=== PATIENT | male | born 1985 | race Caucasian/White ===

== ENCOUNTER 2018-07-06 16:46 | Emergency (ER) | payer OTHER ==
--- NOTE | 2018-07-06 17:15 | EDM.PDOC ---
ED HPI GENERAL MEDICAL PROBLEM - General Chief Complaint: Laceration Stated Complaint: LEFT WRIST INJURY Time Seen by Provider: 07/06/18 17:15 Source of Information: Reports: Patient History Limitations: Reports: No Limitations - History of Present Illness INITIAL COMMENTS - FREE TEXT/NARRATIVE: HISTORY AND PHYSICAL: History of present illness: Patient is a 33-year-old male who presents to the ED today after an incident at work where a sandblaster hit his right wrist. This occurred about 2 hours prior to arrival. Patient is able to use the hand and continued to work after this is was wrapped up. He states it did not bleed much. He is not up-to-date on his tetanus. He denies any numbness or tingling to the distal extremities. Denies any other extremity involvement. He denies any health history. All review of systems was reviewed and negative. Review of systems: As per history of present illness and below otherwise all systems reviewed and negative. Past medical history: As per history of present illness and as reviewed below otherwise noncontributory. Surgical history: As per history of present illness and as reviewed below otherwise noncontributory. Social history: See social history for further information Family history: As per history of present illness and as reviewed below otherwise noncontributory. Physical exam: General: Patient is well-developed and well-nourished, alert and oriented 33- year-old male. Nontoxic appearing and in no acute distress. HEENT: Atraumatic, normocephalic, pupils equal and reactive bilaterally, negative for conjunctival pallor or scleral icterus, mucous membranes moist, TMs normal bilaterally, throat clear, neck supple, nontender, trachea midline. No drooling or trismus noted. No meningeal signs. No hot potato voice noted. Lungs: Clear to auscultation, breath sounds equal bilaterally, chest nontender. Heart: S1S2, regular rate and rhythm without overt murmur Abdomen: Soft, nondistended, nontender. Negative for masses or hepatosplenomegaly. Negative for costovertebral tenderness. Pelvis: Stable nontender. Genitourinary: Deferred. Rectal: Deferred. Skin: Please see extremity for detail. Otherwise skin is intact, warm, dry. No lesions or rashes noted. Extremities: Patient does have full range of motion/strength of all fingers and wrist on his right hand. There is a 5 cm x 4 cm abrasion to the right wrist. No tendon or structures visible. Radial pulses grossly intact. Cap refill less than 2 seconds. Strong and equal grasp bilaterally. Able flex and extend all 5 fingers without weakness or difficulty. Moves all other extremities without difficulty or deficits. Neurovascular unremarkable. Neuro: Awake, alert, oriented. Cranial nerves II through XII unremarkable. Cerebellum unremarkable. Motor and sensory unremarkable throughout. Exam nonfocal. Notes: Dr. Langford was consulted on this patient. Verbal and written consent from the patient and image was sent to Dr. Langford for review. Dr Langford will follow him up in clinic tomorrow. The area does not have the ability to be sutured as it appears to be more of an abrasion. Per Dr. Langford, will apply zerofoam dressing and have close follow up with her tomorrow. Tdap was updated. Will place patient on Bactrim DS (he has allergy to PCN's). Mize given for moderate to severe pain. Discharge instructions were reviewed with the patient and his coworkers/boss was at the bedside. Supportive care measures were reviewed and discussed. Voices understanding and is agreeable to plan of care. Denies any further questions or concerns at this time. Diagnostics: none Therapeutics: Wound care, tdap, Mize, zeroform dressing Prescription: Bactrim, Mize#30 Impression: Pressure Wound of the Left Wrist Plan: 1. Keep the area clean and dry. Continue to monitor for signs of infection. Take medication as prescribed. 2. Tylenol and/or ibuprofen as needed for pain management. You can use the Mize for moderate to severe pain. Caution with activities outside of the house as this medication may cause drowsiness. 3. Dr. Langford's nurse will call you tomorrow with an appointment time. If you have not heard by from them by 9 AM, call their office to talk with them about your follow up date/time. Return to the ED as needed and as discussed. Definitive disposition and diagnosis as appropriate pending reevaluation and review of above. Onset: Today Duration: Hour(s): Location: Reports: Upper Extremity, Left Left Wrist Pain Score (Numeric/FACES): 2 - Related Data Allergies Allergy/AdvReac Type Severity Reaction Status Date / Time Penicillins Allergy Anaphylactic Verified 07/06/18 17:07 Shock Home Meds: Home Meds Acetaminophen/HYDROcodone [Mize 325-5 MG] 1 dose PO Q4H PRN #30 tablet [Rx] Sulfamethoxazole/Trimethoprim [Bactrim Ds Tablet] 1 each PO BID 7 Days #14 tablet 07/06/18 [Rx] Past Medical History - Past Health History Medical/Surgical History: Denies Medical/Surgical History - Infectious Disease History Infectious Disease History: Reports: None Social & Family History - Family History Family Medical History: Noncontributory - Tobacco Use Smoking Status *Q: Current Every Day Smoker Years of Tobacco use: 18 Packs/Tins Daily: 0.1 - Caffeine Use Caffeine Use: Reports: Coffee - Recreational Drug Use Recreational Drug Use: No ED ROS GENERAL - Review of Systems Review Of Systems: ROS reveals no pertinent complaints other than HPI. ED EXAM, SKIN/RASH Exam: See Below (see dictation) Course - Vital Signs Last Recorded V/S: Last Vital Signs Temp 99.1 F 07/06/18 17:07 Pulse 72 07/06/18 17:07 Resp 16 07/06/18 17:07 BP 140/74 07/06/18 17:07 Pulse Ox 97 07/06/18 17:07 - Orders/Labs/Meds Orders: Active Orders 24 hr Category Date Time Status Communication Order [RC] STAT Care 07/06/18 17:46 Active Vaccines to be Administered [RC] PER UNIT ROUTINE Care 07/06/18 17:21 Active Meds: Medications Discontinued Medications Generic Name Dose Route Start Last Admin Trade Name Freq PRN Reason Stop Dose Admin Hydrocodone Bitart/Acetaminophen 1 tab 07/06/18 17:21 07/06/18 17:54 Mize 325-5 Mg PO 07/06/18 17:22 1 tab ONETIME ONE Administration Bacitracin 1 dose 07/06/18 17:21 07/06/18 17:34 Bacitracin Oint 1 Gm TOP 07/06/18 17:22 1 dose ONETIME ONE Administration Diphtheria/Tetanus/Acell Pertussis 0.5 ml 07/06/18 17:21 07/06/18 17:34 Adacel IM 07/06/18 17:22 0.5 ml .ONCE ONE Administration Lidocaine HCl 5 ml 07/06/18 17:21 07/06/18 17:35 Xylocaine-Mpf 1% INJECT 07/06/18 17:22 5 ml ONETIME ONE Administration Departure - Departure Time of Disposition: 17:44 Disposition: Home, Self-Care 01 Clinical Impression: Wound, open, wrist Qualifiers: Encounter type: initial encounter Laterality: right Qualified Code(s): S61.501A - Unspecified open wound of right wrist, initial encounter - Discharge Information Prescriptions: Acetaminophen/HYDROcodone [Mize 325-5 MG] 1 dose PO Q4H PRN #30 tablet PRN Reason: Pain Sulfamethoxazole/Trimethoprim [Bactrim Ds Tablet] 1 each PO BID 7 Days #14 tablet Instructions: Wound Care, Adult Referrals: PCP,None [Primary Care Provider] - Forms: ED Department Discharge Additional Instructions: The following information is given to patients seen in the emergency department who are being discharged to home. This information is to outline your options for follow-up care. We provide all patients seen in our emergency department with a follow-up referral. The need for follow-up, as well as the timing and circumstances, are variable depending upon the specifics of your emergency department visit. If you don't have a primary care physician on staff, we will provide you with a referral. We always advise you to contact your personal physician following an emergency department visit to inform them of the circumstance of the visit and for follow-up with them and/or the need for any referrals to a consulting specialist. The emergency department will also refer you to a specialist when appropriate. This referral assures that you have the opportunity for follow-up care with a specialist. All of these measure are taken in an effort to provide you with optimal care, which includes your follow-up. Under all circumstances we always encourage you to contact your private physician who remains a resource for coordinating your care. When calling for follow-up care, please make the office aware that this follow-up is from your recent emergency room visit. If for any reason you are refused follow-up, please contact the [facility] Emergency Department at and asked to speak to the emergency department charge nurse. [facility] [address] [place] [id number] [address] [place] [address] [facility] Specialty Care - Plastic Surgery Professional Building [address], [address] [place] [address] 1. Keep the area clean and dry. Continue to monitor for signs of infection. Take medication as prescribed. 2. Tylenol and/or ibuprofen as needed for pain management. You can use the Mize for moderate to severe pain. Caution with activities outside of the house as this medication may cause drowsiness. 3. Dr. Langford's nurse will call you tomorrow with an appointment time. If you have not heard by from them by 9 AM, call their office 4. Return to the ED as needed and as discussed. - My Orders Last 24 Hours: My Active Orders 07/06/18 17:21 Vaccines to be Administered [RC] PER UNIT ROUTINE 07/06/18 17:46 Communication Order [RC] STAT - Assessment/Plan Last 24 Hours: My Active Orders 07/06/18 17:21 Vaccines to be Administered [RC] PER UNIT ROUTINE 07/06/18 17:46 Communication Order [RC] STAT
[2018-07-06] MEDS ORDERED: Diphtheria,Pertussis(Acell),Tetanus Vaccine 0.5 ML Syringe IM ONE (17:21)
[2018-07-06] MEDS ORDERED: Bacitracin Oint 1 GM U/D Packet TOP ONE (17:21)
[2018-07-06] MEDS ORDERED: Acetaminophen/HYDROcodone 325-5 MG Tab PO ONE (17:21)
== END 2018-07-06 18:25 | disposition home or self-care (01) ==
LOC: MW.ED 16:46
DX: S61.501A Unspecified open wound of right wrist, initial encounter (principal); F17.210 Nicotine dependence, cigarettes, uncomplicated; Z23 Encounter for immunization; Z88.0 Allergy status to penicillin; W22.8XXA Striking against or struck by other objects, initial encounter; Y99.0 Civilian activity done for income or pay
CPT/HCPCS: 90471; 90715; 99282; A9270; 99283; J2001

== ENCOUNTER 2018-10-30 19:03 | Emergency (ER) | payer BC, OTHER ==
[2018-10-30] MEDS ORDERED: Sodium Chloride 0.9% 2.5 ML Syringe FLUSH PRN (19:26)
[2018-10-30] MEDS ORDERED: Sodium Chloride 0.9% 10 ML Syringe FLUSH PRN (19:26)
[2018-10-30] MEDS ORDERED: Sodium Chloride 0.9% 1,000 ML IV ONE (19:27)
[2018-10-30] MEDS ORDERED: Ketorolac 30 MG/ML SDV IVPUSH ONE (19:27)
--- NOTE | 2018-10-30 19:32 | EDM.PDOC ---
ED HPI GENERAL MEDICAL PROBLEM - General Chief Complaint: Abdominal Pain Stated Complaint: PAIN IN LOWER ABDOMEN AND GROIN SINCE FRIDAY Time Seen by Provider: 10/30/18 19:16 - History of Present Illness INITIAL COMMENTS - FREE TEXT/NARRATIVE: HISTORY AND PHYSICAL: History of present illness: The patient is a 33-year-old male with no significant GI or history and presents with onset of pain in the left lower quadrant and a lump he noticed in his groin area all starting on Friday. He said he did some lifting recently and he wasn't sure if he caused hernia. He has had no fevers chills flank pain nausea vomiting or diarrhea. Is no hematuria dysuria or frequency and says that after the pain started he had some discomfort in his testicle but it was not severe and it was only dull and achy and that only occurred this morning. He denies any swelling to the testicle. He says the pain does not originate in his testicle and it was originally in the left lower quadrant and near the area where he found this small lump in his groin. He has no midline back pain and this discomfort does not radiate to his legs. He denies any trauma and did not take anything but aspirin for the discomfort. Review of systems: As per history of present illness and below otherwise all systems reviewed and negative. Past medical history: As per history of present illness and as reviewed below otherwise noncontributory. Surgical history: As per history of present illness and as reviewed below otherwise noncontributory. Social history: No reported history of drug or alcohol abuse. Family history: As per history of present illness and as reviewed below otherwise noncontributory. Physical exam: General: Well-developed well-nourished man who is nontoxic and vital signs are noted by me. He is laughing and interactive both in triage and in the room easily without any distress. HEENT: Atraumatic, normocephalic, negative for conjunctival pallor or scleral icterus, mucous membranes moist, throat clear, neck supple, nontender, trachea midline. Lungs: Clear to auscultation, breath sounds equal bilaterally, chest nontender. Heart: S1S2, regular rate and rhythm no overt murmurs Abdomen: Soft, nondistended, with slightly hypoactive bowel sounds and no tympany on percussion. There is some mild tenderness on deep palpation in the left lower quadrant which the patient says reproduces his pain. Negative for masses or hepatosplenomegaly. Negative for costovertebral tenderness. Pelvis: Stable nontender. Genitourinary: Testicles are descended bilaterally and there is a normal cremasteric reflex. The left testicle lies lower than the right and there is no evidence of any skin lesions or abnormalities. He is uncircumcised. On the left side where the patient says he has a lump there is no evidence of a hernial defect both on supine and upright exam but there is a palpable small lymph node that is mobile and rubbery in texture. Other lymph nodes in the inguinal area again that are small rubbery and mobile. Rectal: Deferred. Extremities: Atraumatic, full range of motion and no edema Neurovascular unremarkable. Neuro: Awake, alert, oriented. Cranial nerves II through XII unremarkable. Cerebellum unremarkable. Motor and sensory unremarkable throughout. Exam nonfocal. Diagnostics: CBC CMP UA with reflex CT scan of the abdomen and pelvis ultrasound of the scrotum and contents Therapeutics: IV fluids Toradol The incidental findings on the CAT scan of a small left intrarenal stone and a subacute T12 compression discussed with the patient. These are not relevant to today's complaints and the remainder of the CT scan was within normal limits Impression: Left lower abdominal pain, left testicular pain; inguinal adenopathy stable Definitive disposition and diagnosis as appropriate pending reevaluation and review of above. - Related Data Allergies Allergy/AdvReac Type Severity Reaction Status Date / Time Penicillins Allergy Anaphylactic Verified 10/30/18 19:20 Shock Past Medical History - Past Health History Medical/Surgical History: Denies Medical/Surgical History - Infectious Disease History Infectious Disease History: Reports: None Social & Family History - Family History Family Medical History: Noncontributory - Caffeine Use Caffeine Use: Reports: Coffee ED ROS GENERAL - Review of Systems Review Of Systems: ROS reveals no pertinent complaints other than HPI. ED EXAM, GENERAL - Physical Exam Exam: See Below (see Dictation) Course - Vital Signs Last Recorded V/S: Last Vital Signs Temp 36.2 C 10/30/18 20:10 Pulse 63 10/30/18 20:10 Resp 16 10/30/18 20:00 BP 110/56 L 10/30/18 20:10 Pulse Ox 97 10/30/18 20:10 - Orders/Labs/Meds Orders: Active Orders 24 hr Category Date Time Status Scrotal Duplex Ltd [US] Stat Exams 10/30/18 20:31 Taken Sodium Chloride 0.9% [Saline Flush] Med 10/30/18 19:26 Active 10 ml FLUSH ASDIRECTED PRN Sodium Chloride 0.9% [Saline Flush] Med 10/30/18 19:26 Active 2.5 ml FLUSH ASDIRECTED PRN Saline Lock Insert [OM.PC] Stat Oth 10/30/18 19:26 Ordered Medication Orders Sodium Chloride (Saline Flush) 10 ml FLUSH ASDIRECTED PRN PRN Reason: Keep Vein Open Last Admin: 10/30/18 19:42 Dose: 10 ml Sodium Chloride (Saline Flush) 2.5 ml FLUSH ASDIRECTED PRN PRN Reason: Keep Vein Open Last Admin: 10/30/18 19:42 Dose: 2.5 ml Labs: Laboratory Tests 10/30/18 10/30/18 10/30/18 Range/Units 19:27 19:37 19:37 WBC 10.09 (4.0-11.0) K/uL RBC 4.78 (4.50-5.90) M/uL Hgb 14.5 (13.0-17.0) g/dL Hct 42.4 (38.0-50.0) % MCV 88.7 (80.0-98.0) fL MCH 30.3 (27.0-32.0) pg MCHC 34.2 (31.0-37.0) g/dL RDW Std Deviation 41.0 (28.0-62.0) fl RDW Coeff of Shari 13 (11.0-15.0) % Plt Count 309 (150-400) K/uL MPV 9.30 (7.40-12.00) fL Neut % (Auto) 50.0 (48.0-80.0) % Lymph % (Auto) 40.9 H (16.0-40.0) % [place] % (Auto) 6.4 (0.0-15.0) % Eos % (Auto) 2.4 (0.0-7.0) % Baso % (Auto) 0.3 (0.0-1.5) % Neut # (Auto) 5.0 (1.4-5.7) K/uL Lymph # (Auto) 4.1 H (0.6-2.4) K/uL [place] # (Auto) 0.7 (0.0-0.8) K/uL Eos # (Auto) 0.2 (0.0-0.7) K/uL Baso # (Auto) 0.0 (0.0-0.1) K/uL Nucleated RBC % 0.0 /100WBC Nucleated RBCs # 0 K/uL Sodium 140 (136-148) mmol/L Potassium 3.6 (3.5-5.1) mmol/L Chloride 104 (98-107) mmol/L Carbon Dioxide 26.2 (21.0-32.0) mmol/L BUN 11 (7.0-18.0) mg/dL Creatinine 1.0 (0.8-1.3) mg/dL Est Cr Clr Drug Dosing TNP Estimated GFR (MDRD) > 60.0 ml/min Glucose 108 H (74-106) mg/dL Calcium 9.1 (8.5-10.1) mg/dL Total Bilirubin 0.4 (0.2-1.0) mg/dL AST 16 (15-37) IU/L ALT 21 (14-63) IU/L Alkaline Phosphatase 81 (46-116) U/L Total Protein 7.8 (6.4-8.2) g/dL Albumin 4.5 (3.4-5.0) g/dL Globulin 3.3 (2.6-4.0) g/dL Albumin/Globulin Ratio 1.4 (0.9-1.6) Urine Color YELLOW Urine Appearance SLT CLOUDY Urine pH 6.0 (5.0-8.0) Ur Specific [place] >= 1.030 (1.001-1.035) Urine Protein NEGATIVE (NEGATIVE) mg/dL Urine Glucose (UA) NEGATIVE (NEGATIVE) mg/dL Urine Ketones TRACE H (NEGATIVE) mg/dL Urine Occult Blood NEGATIVE (NEGATIVE) Urine Nitrite NEGATIVE (NEGATIVE) Urine Bilirubin NEGATIVE (NEGATIVE) Urine Urobilinogen 0.2 (<2.0) EU/dL Ur Leukocyte Esterase NEGATIVE (NEGATIVE) Meds: Medications Generic Name Dose Route Start Last Admin Trade Name Freq PRN Reason Stop Dose Admin Sodium Chloride 10 ml 10/30/18 19:26 10/30/18 19:42 Saline Flush FLUSH 10 ml ASDIRECTED PRN Administration Keep Vein Open Sodium Chloride 2.5 ml 10/30/18 19:26 10/30/18 19:42 Saline Flush FLUSH 2.5 ml ASDIRECTED PRN Administration Keep Vein Open Discontinued Medications Generic Name Dose Route Start Last Admin Trade Name Carlq PRN Reason Stop Dose Admin Sodium Chloride 1,000 mls @ 999 mls/hr 10/30/18 19:27 10/30/18 19:39 Normal Saline IV 10/30/18 20:27 999 mls/hr STAT ONE Administration Ketorolac Tromethamine 30 mg 10/30/18 19:27 10/30/18 19:40 Toradol IVPUSH 10/30/18 19:28 30 mg ONETIME ONE Administration Departure - Departure Time of Disposition: 21:12 Disposition: Home, Self-Care 01 Condition: Good Clinical Impression: Pain in left testicle Abdominal pain Qualifiers: Abdominal location: left lower quadrant Qualified Code(s): R10.32 - Left lower quadrant pain - Discharge Information Referrals: PCP,None [Primary Care Provider] - Forms: ED Department Discharge Additional Instructions: The following information is given to patients seen in the emergency department who are being discharged to home. This information is to outline your options for follow-up care. We provide all patients seen in our emergency department with a follow-up referral. The need for follow-up, as well as the timing and circumstances, are variable depending upon the specifics of your emergency department visit. If you don't have a primary care physician on staff, we will provide you with a referral. We always advise you to contact your personal physician following an emergency department visit to inform them of the circumstance of the visit and for follow-up with them and/or the need for any referrals to a consulting specialist. The emergency department will also refer you to a specialist when appropriate. This referral assures that you have the opportunity for followup care with a specialist. All of these measure are taken in an effort to provide you with optimal care, which includes your followup. Under all circumstances we always encourage you to contact your private physician who remains a resource for coordinating your care. When calling for followup care, please make the office aware that this follow-up is from your recent emergency room visit. If for any reason you are refused follow-up, please contact the [facility] emergency department at and ask to speak to the emergency department charge nurse. [facility] Primary care- Internal Medicine and Family [address] [address] Push hydration and try to eat a healthy diet. Use [id number] Tylenol or ibuprofen for pain management please call and schedule a follow-up appointment in our clinic for further care and evaluation. Return to ER as needed and as discussed - My Orders Last 24 Hours: My Active Orders 10/30/18 19:26 Sodium Chloride 0.9% [Saline Flush] 10 ml FLUSH ASDIRECTED PRN Sodium Chloride 0.9% [Saline Flush] 2.5 ml FLUSH ASDIRECTED PRN Saline Lock Insert [OM.PC] Stat 10/30/18 20:31 Scrotal Duplex Ltd [US] Stat - Assessment/Plan Last 24 Hours: My Active Orders 10/30/18 19:26 Sodium Chloride 0.9% [Saline Flush] 10 ml FLUSH ASDIRECTED PRN Sodium Chloride 0.9% [Saline Flush] 2.5 ml FLUSH ASDIRECTED PRN Saline Lock Insert [OM.PC] Stat 10/30/18 20:31 Scrotal Duplex Ltd [US] Stat
[2018-10-30 20:11] LABS: CHLORIDE,CL 104 mmol/L (98-107); SODIUM,NA 140 mmol/L (136-148)
--- NOTE | 2018-10-30 20:16 | CT ---
INDICATION: Left lower quadrant pain. Possible calculus. COMPARISON: None available TECHNIQUE: CT examination of the abdomen and pelvis was performed without contrast enhancement using 3 mm thick axial sections from the lung bases through the pubic symphysis. Oral contrast was not administered. Please note that all CT scans at this facility use dose modulation, iterative reconstruction, and/or weight-based dosing when appropriate to reduce radiation dose to as low as reasonably achievable. FINDINGS: In the abdomen, the unenhanced liver, spleen, pancreas, and adrenals are normal in appearance. There is a 1 millimeter nonobstructive calculus in the interpolar left kidney. This is only clearly seen on the coronal images. The unenhanced kidneys are otherwise normal in appearance. The gallbladder is normal in appearance. The abdominal aorta is normal in caliber with no sign of dilatation. There is no sign of retroperitoneal mass or adenopathy. The stomach, loops of small bowel, and colon in the abdomen are normal in appearance. In the pelvis, the appendix is normal in appearance with no sign of inflammatory process. The loops of small bowel and colon in the pelvis are normal in appearance. The prostate is normal in appearance. The urinary bladder is normal in appearance. There is no sign of pelvic or inguinal mass or adenopathy. The lung bases are clear. Incidental note is made of small bone islands in the left anterior femoral head and the left superior acetabulum. There is mild anterior wedging of the T12 vertebral body with depression of the superior endplate, consistent with an old endplate fracture and mild compression fracture. IMPRESSION: CT of the abdomen shows a 1 millimeter nonobstructive calculus in the interpolar left kidney. No sign of any left renal or ureteral obstruction or ureteral calculi. No sign of any calculi in the right kidney. Normal CT of the pelvis without contrast. Please note that all CT scans at this facility use dose modulation, iterative reconstruction, and/or weight-based dosing when appropriate to reduce radiation dose to as low as reasonably achievable. Dictated by Radames Puentes MD @ Oct 30 2018 8:11PM Signed by Dr. Radames Puentes @ Oct 30 2018 8:16PM
--- NOTE | 2018-10-30 21:10 | US ---
INDICATION: Left testicular pain. COMPARISON: None available. FINDINGS: Ultrasound examination of the testes was performed with a high-resolution linear transducer. A few nonspecific tiny punctate calcifications are seen in the left testis, unlikely to be of clinical concern. The testes are otherwise normal in appearance, with smooth margins and uniform internal echogenicity. There is normal and symmetric pulse and color Doppler flow. The right testis measures 5.1 x 2.7 x 3.9 cm and the left measures 3.8 x 2.3 x 4.0 cm There is a right epididymal head cyst measuring up to 0.8 centimeters in diameter, of no clinical concern. The left epididymal head is normal in appearance. There is no sign of hydrocele. No extra-testicular masses are seen. IMPRESSION: Nothing seen to correlate with the patient`s left testicular pain. Normal appearance of the left testis except for tiny punctate calcifications of no clinical concern. Normal appearance of right testis. Symmetric and normal bilateral color and pulsed Doppler flow in the testes. Incidental note made of a small cyst in the right epididymal head. Dictated by Radames Puentes MD @ Oct 30 2018 9:06PM Signed by Dr. Radames Puentes @ Oct 30 2018 9:08PM
--- NOTE | 2018-11-02 10:21 | US ---
EXAM DATE: 10/30/18 PATIENT'S AGE: 33 Patient: JIM DANIELS Facility: [facility] Site . Site : 1985 Study: US-Testicle [id number]/14/2019 9:05:24 PM Ordering Physician: Ellyn Garcia Final Report: INDICATION: Left testicular pain. COMPARISON: None available. FINDINGS: Ultrasound examination of the testes was performed with a high-resolution linear transducer. A few nonspecific tiny punctate calcifications are seen in the left testis, unlikely to be of clinical concern. The testes are otherwise normal in appearance, with smooth margins and uniform internal echogenicity. There is normal and symmetric pulse and color Doppler flow. The right testis measures 5.1 x 2.7 x 3.9 cm and the left measures 3.8 x 2.3 x 4.0 cm There is a right epididymal head cyst measuring up to 0.8 centimeters in diameter, of no clinical concern. The left epididymal head is normal in appearance. There is no sign of hydrocele. No extra-testicular masses are seen. IMPRESSION: Nothing seen to correlate with the patient`s left testicular pain. Normal appearance of the left testis except for tiny punctate calcifications of no clinical concern. Normal appearance of right testis. Symmetric and normal bilateral color and pulsed Doppler flow in the testes. Incidental note made of a small cyst in the right epididymal head. Dictated by Radames Puentes MD @ Oct 30 2018 9:06PM Signed by: Radames Puentes MD @10/30/2018 9:08:57 PM (Electronic Signature) Report Signed by Proxy. JOHN
== END 2018-10-30 21:30 | disposition home or self-care (01) ==
LOC: MW.ED 19:03
DX: N50.812 Left testicular pain (principal); R10.32 Left lower quadrant pain; R59.0 Localized enlarged lymph nodes; Z88.0 Allergy status to penicillin
CPT/HCPCS: 36415; 74176; 76870; 80053; 81003; 85025; 93976; 96361; 96374; 99284; J1885; J7040

== ENCOUNTER 2019-04-05 17:39 | Emergency (ER) | payer BC ==
--- NOTE | 2019-04-05 18:08 | EDM.PDOC ---
ED HPI GENERAL MEDICAL PROBLEM - General Chief Complaint: Upper Extremity Injury/Pain Stated Complaint: LT ARM PAIN Time Seen by Provider: 04/05/19 18:00 - History of Present Illness INITIAL COMMENTS - FREE TEXT/NARRATIVE: HISTORY AND PHYSICAL: History of present illness: Patient 34-year-old male with no significant past medical history presents with a concern of left elbow pain he denies any trauma or other concern. Review of systems: As per history of present illness and below otherwise all systems reviewed and negative. Past medical history: As per history of present illness and as reviewed below otherwise noncontributory. Surgical history: As per history of present illness and as reviewed below otherwise noncontributory. Social history: No reported history of drug or alcohol abuse. Family history: As per history of present illness and as reviewed below otherwise noncontributory. Physical exam: HEENT: Atraumatic, normocephalic, pupils reactive, negative for conjunctival pallor or scleral icterus, mucous membranes moist, throat clear, neck supple, nontender, trachea midline. Lungs: Clear to auscultation, breath sounds equal bilaterally, chest nontender. Heart: S1S2, regular, negative for clicks, rubs, or JVD. Abdomen: Soft, nondistended, nontender. Negative for masses or hepatosplenomegaly. Negative for costovertebral tenderness. Pelvis: Stable nontender. Genitourinary: Deferred. Rectal: Deferred. Extremities: Left elbow is full range of motion is no erythema no point tenderness CMS neurovascular is unremarkable. Neuro: Awake, alert, oriented. Cranial nerves II through XII unremarkable. Cerebellum unremarkable. Motor and sensory unremarkable throughout. Exam nonfocal. Diagnostics: X-ray left elbow Therapeutics: Sling Impression: #1 left elbow pain etiology to be determined Definitive disposition and diagnosis as appropriate pending reevaluation and review of above. LEFT ELBOW Pain Score (Numeric/FACES): 8 - Related Data Allergies Allergy/AdvReac Type Severity Reaction Status Date / Time Penicillins Allergy Anaphylactic Verified 10/30/18 19:20 Shock Home Meds: Home Meds . [No Known Home Meds] 10/30/18 [History] Past Medical History - Past Health History Medical/Surgical History: Denies Medical/Surgical History - Infectious Disease History Infectious Disease History: Reports: None Social & Family History - Family History Family Medical History: Noncontributory - Caffeine Use Caffeine Use: Reports: Coffee Review of Systems - Review of Systems Review Of Systems: Comprehensive ROS is negative, except as noted in HPI. ED EXAM, GENERAL - Physical Exam Exam: See Below (See dictation) Course - Orders/Labs/Meds Orders: Active Orders 24 hr Category Date Time Status Elbow 2V Lt [CR] Stat Exams 04/05/19 18:05 Ordered Departure - Departure Time of Disposition: 18:06 Disposition: Home, Self-Care 01 Condition: Good Clinical Impression: Elbow pain - Discharge Information Referrals: PCP,None [Primary Care Provider] - Additional Instructions: The following information is given to patients seen in the emergency department who are being discharged to home. This information is to outline your options for follow-up care. We provide all patients seen in our emergency department with a follow-up referral. The need for follow-up, as well as the timing and circumstances, are variable depending upon the specifics of your emergency department visit. If you don't have a primary care physician on staff, we will provide you with a referral. We always advise you to contact your personal physician following an emergency department visit to inform them of the circumstance of the visit and for follow-up with them and/or the need for any referrals to a consulting specialist. The emergency department will also refer you to a specialist when appropriate. This referral assures that you have the opportunity for followup care with a specialist. All of these measure are taken in an effort to provide you with optimal care, which includes your followup. Under all circumstances we always encourage you to contact your private physician who remains a resource for coordinating your care. When calling for followup care, please make the office aware that this follow-up is from your recent emergency room visit. If for any reason you are refused follow-up, please contact the [facility] emergency department at and asked to speak to the emergency department charge nurse. [facility] Professional Building [address] [place] [address], [address] [place] [address] Sling as directed Motrin/Tylenol as directed follow-up primary medical doctor and/or orthopedic clinic as needed as discussed - My Orders Last 24 Hours: My Active Orders 04/05/19 18:05 Elbow 2V Lt [CR] Stat - Assessment/Plan Last 24 Hours: My Active Orders 04/05/19 18:05 Elbow 2V Lt [CR] Stat
--- NOTE | 2019-04-05 18:20 | CR ---
Indication: Pain for couple of months. No injury. Technique: Two views of the left elbow were obtained. Comparison: None Findings: No fracture or subluxation is identified. The joint spaces are well maintained. A significant joint effusion is not appreciated. Impression: No acute fracture. Dictated by Connie Rodriguez MD @ Apr 05 2019 6:18PM Signed by Dr. Connie Rodriguez @ Apr 05 2019 6:18PM
== END 2019-04-05 18:50 | disposition home or self-care (01) ==
LOC: MW.ED 17:39
DX: M25.522 Pain in left elbow (principal); Z88.0 Allergy status to penicillin
CPT/HCPCS: 73070-26-LT; 73070-LT; 99282; 99283-25

== ENCOUNTER 2020-02-10 21:02 | Emergency (ER) | payer BC, OTHER ==
[2020-02-10] MEDS ORDERED: Sodium Chloride 0.9% 10 ML Syringe FLUSH PRN (21:03)
[2020-02-10] MEDS ORDERED: Sodium Chloride 0.9% 2.5 ML Syringe FLUSH PRN (21:03)
[2020-02-10] MEDS ORDERED: Lactated Ringers 1,000 ML IV ONE ×2 (21:04→21:05)
[2020-02-10] MEDS ORDERED: Ondansetron 4 MG/2 ML SDV IVPUSH ONE (21:04)
--- NOTE | 2020-02-10 21:09 | EDM.PDOC ---
ED HPI GENERAL MEDICAL PROBLEM - General Stated Complaint: CHEST PAIN Time Seen by Provider: 02/10/20 21:03 - History of Present Illness INITIAL COMMENTS - FREE TEXT/NARRATIVE: 35-year-old male presenting with palpitations and lightheadedness and red emesi s. 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 He states that he has a burning discomfort in his abdomen. He denies recent melena or bright red blood per rectum he denies heavy regular alcohol use he denies prior history of similar symptoms. He denies prior cardiac history. He denies substernal chest pain. He denies syncope. Symptoms constant without exacerbating or alleviating factors radiation or other associated symptoms. - Related Data Allergies Allergy/AdvReac Type Severity Reaction Status Date / Time Penicillins Allergy Anaphylactic Verified 10/30/18 19:20 Shock Home Meds: Home Meds . [No Known Home Meds] 10/30/18 [History] Past Medical History - Past Health History Medical/Surgical History: Denies Medical/Surgical History - Infectious Disease History Infectious Disease History: Reports: None Social & Family History - Family History Family Medical History: Noncontributory - Caffeine Use Caffeine Use: Reports: Coffee ED ROS GENERAL - Review of Systems Review Of Systems: See Below Free Text/Narrative/Comment: General: No fever. Eyes: No vision problems. ENT: No sore throat. Neck: No neck stiffness. Respiratory: No shortness of breath. Cardiac: Per HPI Gastrointestinal: Per HPI Musculoskeletal: No myalgias/arthralgias. Neurologic: No headache. ED EXAM, GENERAL - Physical Exam Exam: See Below Free Text/Narrative:: General Appearance: No acute distress, appears comfortable Skin: No rash HEENT: Normocephalic/atraumatic, sclera anicteric, mucous membranes dry Neck: Normal range of motion Chest and Lungs: Bilateral breath sounds, clear to auscultation Cardiovascular: Tachycardic rate and regular rhythm, no murmur, intact distal perfusion Abdomen: Soft, non-tender, nondistended Back: Normal Musculoskeletal: No edema or tenderness Neurologic: Awake, alert, no obvious deficits, moving all extremities Psychiatric: Appropriate, cooperative EKG INTERPRETATION EKG Date: 02/10/20 Time: 20:56 EKG Interpretation Comments: Sinus tachycardia with a rate of 147 normal axis no acute ischemia per my interpretation normal intervals with QTC of 445 Course - Vital Signs Last Recorded V/S: Last Vital Signs Temp 97.3 F 02/10/20 21:03 Pulse 78 02/11/20 02:27 Resp 18 02/11/20 02:27 BP 116/59 L 02/11/20 02:27 Pulse Ox 97 02/11/20 02:27 - Orders/Labs/Meds Orders: Active Orders 24 hr Category Date Time Status CORONAVIRUS COVID-19 PCR PHL Stat Lab 02/10/20 21:14 Ordered CULTURE BLOOD [BC] Stat Lab 02/10/20 21:29 Received CULTURE BLOOD [BC] Stat Lab 02/10/20 21:36 Received Ciprofloxacin in D5W [Cipro in D5W 400 MG/200 ML] 400 Med 02/10/20 21:15 Active mg Premix Bag 1 bag IV Q12H Lactated Ringers [Ringers, Lactated] 1,000 ml Med 02/10/20 22:30 Active IV ASDIRECTED Sodium Chloride 0.9% [Saline Flush] Med 02/10/20 21:03 Active 10 ml FLUSH ASDIRECTED PRN Sodium Chloride 0.9% [Saline Flush] Med 02/10/20 21:03 Active 2.5 ml FLUSH ASDIRECTED PRN Blood Culture x2 Reflex Set [OM.PC] Stat Oth 02/10/20 21:15 Ordered Saline Lock Insert [OM.PC] Stat Oth 02/10/20 21:03 Ordered Medication Orders Ciprofloxacin/Dextrose 400 mg/ (Premix) 200 mls @ 200 mls/hr IV Q12H [facility] Last Admin: 02/10/20 21:38 Dose: 200 mls/hr Documented by: ALEXTBRI Lactated Ringer's (Ringers, Lactated) 1,000 mls @ 125 mls/hr IV ASDIRECTED CONNER Last Admin: 02/10/20 22:40 Dose: 500 mls/hr Documented by: SLATBRI Sodium Chloride (Saline Flush) 10 ml FLUSH ASDIRECTED PRN PRN Reason: Keep Vein Open Last Admin: 02/10/20 21:40 Dose: 10 ml Documented by: SLATBRI Sodium Chloride (Saline Flush) 2.5 ml FLUSH ASDIRECTED PRN PRN Reason: Keep Vein Open Last Admin: 02/10/20 21:40 Dose: 2.5 ml Documented by: DOC Labs: Laboratory Tests 02/10/20 02/10/20 02/10/20 Range/Units 21:07 21:07 21:07 WBC 15.44 H (4.0-11.0) K/uL RBC 4.94 (4.50-5.90) M/uL Hgb 15.0 (13.0-17.0) g/dL Hct 44.8 (38.0-50.0) % MCV 90.7 (80.0-98.0) fL MCH 30.4 (27.0-32.0) pg MCHC 33.5 (31.0-37.0) g/dL RDW Std Deviation 44.4 (28.0-62.0) fl RDW Coeff of Shari 13 (11.0-15.0) % Plt Count 365 (150-400) K/uL MPV 9.30 (7.40-12.00) fL Neut % (Auto) 83.1 H (48.0-80.0) % Lymph % (Auto) 11.6 L (16.0-40.0) % Conway % (Auto) 5.1 (0.0-15.0) % Eos % (Auto) 0.1 (0.0-7.0) % Baso % (Auto) 0.1 (0.0-1.5) % Neut # (Auto) 12.8 H (1.4-5.7) K/uL Lymph # (Auto) 1.8 (0.6-2.4) K/uL Conway # (Auto) 0.8 (0.0-0.8) K/uL Eos # (Auto) 0.0 (0.0-0.7) K/uL Baso # (Auto) 0.0 (0.0-0.1) K/uL Nucleated RBC % 0.0 /100WBC Nucleated RBCs # 0 K/uL INR 1.09 APTT 24.7 (18.6-31.3) SEC Lactate 4.2 H* (0.20-2.00) mmol/L Sodium (136-148) mmol/L Potassium (3.5-5.1) mmol/L Chloride (98-107) mmol/L Carbon Dioxide (21.0-32.0) mmol/L BUN (7.0-18.0) mg/dL Creatinine (0.8-1.3) mg/dL Est Cr Clr Drug Dosing Estimated GFR (MDRD) ml/min Glucose (74-106) mg/dL Calcium (8.5-10.1) mg/dL Magnesium (1.8-2.4) mg/dL Total Bilirubin (0.2-1.0) mg/dL AST (15-37) IU/L ALT (14-63) IU/L Alkaline Phosphatase (46-116) U/L Troponin I (0.000-0.056) ng/mL Total Protein (6.4-8.2) g/dL Albumin (3.4-5.0) g/dL Globulin (2.6-4.0) g/dL Albumin/Globulin Ratio (0.9-1.6) Lipase (73-393) U/L Urine Color Urine Appearance Urine pH (5.0-8.0) Ur Specific [place] (1.001-1.035) Urine Protein (NEGATIVE) mg/dL Urine Glucose (UA) (NEGATIVE) mg/dL Urine Ketones (NEGATIVE) mg/dL Urine Occult Blood (NEGATIVE) Urine Nitrite (NEGATIVE) Urine Bilirubin (NEGATIVE) Urine Urobilinogen (<2.0) EU/dL Ur Leukocyte Esterase (NEGATIVE) Urine RBC (0-2/HPF) Urine WBC (0-5/HPF) Ur Epithelial Cells (NONE-FEW) Urine Bacteria (NEGATIVE) Urine Mucus (NONE-MOD) Ethyl Alcohol mg/dL SARS-CoV-2 RNA (VARSHA) (NEGATIVE) 02/10/20 02/10/20 02/10/20 Range/Units 21:07 22:27 22:35 WBC (4.0-11.0) K/uL RBC (4.50-5.90) M/uL Hgb (13.0-17.0) g/dL Hct (38.0-50.0) % MCV (80.0-98.0) fL MCH (27.0-32.0) pg MCHC (31.0-37.0) g/dL RDW Std Deviation (28.0-62.0) fl RDW Coeff of Shari (11.0-15.0) % Plt Count (150-400) K/uL MPV (7.40-12.00) fL Neut % (Auto) (48.0-80.0) % Lymph % (Auto) (16.0-40.0) % Conway % (Auto) (0.0-15.0) % Eos % (Auto) (0.0-7.0) % Baso % (Auto) (0.0-1.5) % Neut # (Auto) (1.4-5.7) K/uL Lymph # (Auto) (0.6-2.4) K/uL Conway # (Auto) (0.0-0.8) K/uL Eos # (Auto) (0.0-0.7) K/uL Baso # (Auto) (0.0-0.1) K/uL Nucleated RBC % /100WBC Nucleated RBCs # K/uL INR APTT (18.6-31.3) SEC Lactate 2.5 H* (0.20-2.00) mmol/L Sodium 139 (136-148) mmol/L Potassium 3.1 L (3.5-5.1) mmol/L Chloride 101 (98-107) mmol/L Carbon Dioxide 24.1 (21.0-32.0) mmol/L BUN 9 (7.0-18.0) mg/dL Creatinine 1.3 (0.8-1.3) mg/dL Est Cr Clr Drug Dosing TNP Estimated GFR (MDRD) > 60.0 ml/min Glucose 216 H (74-106) mg/dL Calcium 9.5 (8.5-10.1) mg/dL Magnesium 2.1 (1.8-2.4) mg/dL Total Bilirubin 0.3 (0.2-1.0) mg/dL AST 30 (15-37) IU/L ALT 38 (14-63) IU/L Alkaline Phosphatase 74 (46-116) U/L Troponin I < 0.050 (0.000-0.056) ng/mL Total Protein 8.6 H (6.4-8.2) g/dL Albumin 4.9 (3.4-5.0) g/dL Globulin 3.7 (2.6-4.0) g/dL Albumin/Globulin Ratio 1.3 (0.9-1.6) Lipase 79 (73-393) U/L Urine Color YELLOW Urine Appearance CLEAR Urine pH 6.0 (5.0-8.0) Ur Specific [place] 1.010 (1.001-1.035) Urine Protein NEGATIVE (NEGATIVE) mg/dL Urine Glucose (UA) 100 H (NEGATIVE) mg/dL Urine Ketones NEGATIVE (NEGATIVE) mg/dL Urine Occult Blood NEGATIVE (NEGATIVE) Urine Nitrite NEGATIVE (NEGATIVE) Urine Bilirubin NEGATIVE (NEGATIVE) Urine Urobilinogen 0.2 (<2.0) EU/dL Ur Leukocyte Esterase NEGATIVE (NEGATIVE) Urine RBC NONE SEEN (0-2/HPF) Urine WBC 0-1 (0-5/HPF) Ur Epithelial Cells RARE (NONE-FEW) Urine Bacteria RARE (NEGATIVE) Urine Mucus LIGHT (NONE-MOD) Ethyl Alcohol <3 mg/dL SARS-CoV-2 RNA (VARSHA) (NEGATIVE) 02/10/20 Range/Units 22:50 WBC (4.0-11.0) K/uL RBC (4.50-5.90) M/uL Hgb (13.0-17.0) g/dL Hct (38.0-50.0) % MCV (80.0-98.0) fL MCH (27.0-32.0) pg MCHC (31.0-37.0) g/dL RDW Std Deviation (28.0-62.0) fl RDW Coeff of Shari (11.0-15.0) % Plt Count (150-400) K/uL MPV (7.40-12.00) fL Neut % (Auto) (48.0-80.0) % Lymph % (Auto) (16.0-40.0) % Conway % (Auto) (0.0-15.0) % Eos % (Auto) (0.0-7.0) % Baso % (Auto) (0.0-1.5) % Neut # (Auto) (1.4-5.7) K/uL Lymph # (Auto) (0.6-2.4) K/uL Conway # (Auto) (0.0-0.8) K/uL Eos # (Auto) (0.0-0.7) K/uL Baso # (Auto) (0.0-0.1) K/uL Nucleated RBC % /100WBC Nucleated RBCs # K/uL INR APTT (18.6-31.3) SEC Lactate (0.20-2.00) mmol/L Sodium (136-148) mmol/L Potassium (3.5-5.1) mmol/L Chloride (98-107) mmol/L Carbon Dioxide (21.0-32.0) mmol/L BUN (7.0-18.0) mg/dL Creatinine (0.8-1.3) mg/dL Est Cr Clr Drug Dosing Estimated GFR (MDRD) ml/min Glucose (74-106) mg/dL Calcium (8.5-10.1) mg/dL Magnesium (1.8-2.4) mg/dL Total Bilirubin (0.2-1.0) mg/dL AST (15-37) IU/L ALT (14-63) IU/L Alkaline Phosphatase (46-116) U/L Troponin I (0.000-0.056) ng/mL Total Protein (6.4-8.2) g/dL Albumin (3.4-5.0) g/dL Globulin (2.6-4.0) g/dL Albumin/Globulin Ratio (0.9-1.6) Lipase (73-393) U/L Urine Color Urine Appearance Urine pH (5.0-8.0) Ur Specific [place] (1.001-1.035) Urine Protein (NEGATIVE) mg/dL Urine Glucose (UA) (NEGATIVE) mg/dL Urine Ketones (NEGATIVE) mg/dL Urine Occult Blood (NEGATIVE) Urine Nitrite (NEGATIVE) Urine Bilirubin (NEGATIVE) Urine Urobilinogen (<2.0) EU/dL Ur Leukocyte Esterase (NEGATIVE) Urine RBC (0-2/HPF) Urine WBC (0-5/HPF) Ur Epithelial Cells (NONE-FEW) Urine Bacteria (NEGATIVE) Urine Mucus (NONE-MOD) Ethyl Alcohol mg/dL SARS-CoV-2 RNA (VARSHA) NEGATIVE (NEGATIVE) Meds: Medications Generic Name Dose Route Start Last Admin Trade Name Freq PRN Reason Stop Dose Admin Ciprofloxacin/Dextrose 400 mg/ 200 mls @ 200 mls/hr 02/10/20 21:15 02/10/20 21:38 Premix IV 200 mls/hr Q12H CONNER Administration Lactated Ringer's 1,000 mls @ 125 mls/hr 02/10/20 22:30 02/10/20 22:40 Ringers, Lactated IV 500 mls/hr ASDIRECTED CONNER Administration Sodium Chloride 10 ml 02/10/20 21:03 02/10/20 21:40 Saline Flush FLUSH 10 ml ASDIRECTED PRN Administration Keep Vein Open Sodium Chloride 2.5 ml 02/10/20 21:03 02/10/20 21:40 Saline Flush FLUSH 2.5 ml ASDIRECTED PRN Administration Keep Vein Open Discontinued Medications Generic Name Dose Route Start Last Admin Trade Name Freq PRN Reason Stop Dose Admin Lactated Ringer's 1,000 mls @ 999 mls/hr 02/10/20 21:04 02/10/20 21:23 Ringers, Lactated IV 02/10/20 22:04 999 mls/hr .BOLUS ONE Administration Lactated Ringer's 1,000 mls @ 999 mls/hr 02/10/20 21:05 02/10/20 21:23 Ringers, Lactated IV 02/10/20 22:05 999 mls/hr .BOLUS ONE Administration Metronidazole 500 mg/ Premix 100 mls @ 100 mls/hr 02/10/20 21:15 02/10/20 21:34 IV 02/10/20 22:14 100 mls/hr ONETIME ONE Administration Potassium Chloride 40 meq/ 100 mls @ 25 mls/hr 02/10/20 21:53 02/10/20 22:45 Premix IV 02/11/20 01:52 25 mls/hr ONETIME ONE Administration Iopamidol 100 ml 02/10/20 22:26 02/10/20 22:30 Isovue Multipack-370 (76%) IVPUSH 02/10/20 22:27 100 ml ONETIME STA Administration Ondansetron HCl 4 mg 02/10/20 21:04 02/10/20 21:22 Zofran IVPUSH 02/10/20 21:05 4 mg ONETIME ONE Administration Departure - Departure Time of Disposition: 02:49 Disposition: Home, Self-Care 01 Condition: Good Clinical Impression: Vomiting - Discharge Information *PRESCRIPTION DRUG MONITORING PROGRAM REVIEWED*: Not Applicable *COPY OF PRESCRIPTION DRUG MONITORING REPORT IN PATIENT KUMAR: Not Applicable Instructions: Nausea and Vomiting, Adult Referrals: Clara Whiting [Ordering Only Provider] - Additional Instructions: The following information is given to patients seen in the emergency department who are being discharged to home. This information is to outline your options for follow-up care. We provide all patients seen in our emergency department with a follow-up referral. The need for follow-up, as well as the timing and circumstances, are variable depending upon the specifics of your emergency department visit. If you don't have a primary care physician on staff, we will provide you with a referral. We always advise you to contact your personal physician following an emergency department visit to inform them of the circumstance of the visit and for follow-up with them and/or the need for any referrals to a consulting specialist. The emergency department will also refer you to a specialist when appropriate. This referral assures that you have the opportunity for follow-up care with a specialist. All of these measure are taken in an effort to provide you with optimal care, which includes your follow-up. Under all circumstances we always encourage you to contact your private physician who remains a resource for coordinating your care. When calling for follow-up care, please make the office aware that this follow-up is from your recent emergency room visit. If for any reason you are refused follow-up, please contact the [facility] Emergency Department at and asked to speak to the emergency department charge nurse. Critical Care Note - Critical Care Note Total Time (mins): 50 Comments: 35-year-old male who is presenting with profound tachycardia requiring immediate evaluation fluids and serial reassessment differential includes arrhythmia, upper GI bleed, as well as others Sepsis Event Note (ED) - Focused Exam Vital Signs: Vital Signs Temp Pulse Resp BP Pulse Ox 02/11/20 02:27 78 18 116/59 L 97 02/11/20 01:09 78 16 154/48 H 98 02/11/20 00:13 89 11 L 102/72 100 02/10/20 23:59 82 20 110/66 98 02/10/20 23:28 93 18 129/73 98 02/10/20 23:14 95 16 137/51 L 98 02/10/20 22:58 93 18 127/71 98 02/10/20 22:43 98 19 126/70 98 02/10/20 22:29 97 17 125/68 98 02/10/20 21:43 107 H 21 H 133/78 97 02/10/20 21:28 116 H 21 H 139/67 99 02/10/20 21:03 97.3 F 163 H 18 163/70 H 97 - My Orders Last 24 Hours: My Active Orders 02/10/20 21:03 Sodium Chloride 0.9% [Saline Flush] 10 ml FLUSH ASDIRECTED PRN Sodium Chloride 0.9% [Saline Flush] 2.5 ml FLUSH ASDIRECTED PRN Saline Lock Insert [OM.PC] Stat 02/10/20 21:14 CORONAVIRUS COVID-19 PCR PHL Stat 02/10/20 21:15 Ciprofloxacin in D5W [Cipro in D5W 400 MG/200 ML] 400 mg Premix Bag 1 bag IV Q12H Blood Culture x2 Reflex Set [OM.PC] Stat 02/10/20 21:29 CULTURE BLOOD [BC] Stat 02/10/20 21:36 CULTURE BLOOD [BC] Stat 02/10/20 22:30 Lactated Ringers [Ringers, Lactated] 1,000 ml IV ASDIRECTED - Assessment/Plan Last 24 Hours: My Active Orders 02/10/20 21:03 Sodium Chloride 0.9% [Saline Flush] 10 ml FLUSH ASDIRECTED PRN Sodium Chloride 0.9% [Saline Flush] 2.5 ml FLUSH ASDIRECTED PRN Saline Lock Insert [OM.PC] Stat 02/10/20 21:14 CORONAVIRUS COVID-19 PCR PHL Stat 02/10/20 21:15 Ciprofloxacin in D5W [Cipro in D5W 400 MG/200 ML] 400 mg Premix Bag 1 bag IV Q12H Blood Culture x2 Reflex Set [OM.PC] Stat 02/10/20 21:29 CULTURE BLOOD [BC] Stat 02/10/20 21:36 CULTURE BLOOD [BC] Stat 02/10/20 22:30 Lactated Ringers [Ringers, Lactated] 1,000 ml IV ASDIRECTED Assessment:: 35-year-old male who denies relevant past history presenting with significant tachycardia. Initial EKG appeared to be sinus but was difficult to determine 2 L of LR were immediately ordered for heart rate in the 140s. Patient is responding to that fluid bolus his heart rate is now in the low 130s and is very clearly a sinus rhythm. Upper GI bleed certainly needs to be considered IV Zofran will be given the material in the patient's close is his emesis it is pink in color but does not appear to represent clotted blood there is no coffee ground emesis. CBC CMP coags lipase alcohol level chest x-ray all pending and will continue reassessment. 2119: Lactic acid over 430/kg fluid will be completed White count significantly elevated blood cultures ordered urinalysis ordered CT abdomen pelvis ordered we will cover empirically with Cipro Flagyl given severe penicillin allergy and concern for acute intra-abdominal infective process. Leukocytosis could also be reactive but would not assume this given his clinical instability. Hgb is 15. The patient has had no further emesis in the ED. etOH level is undetectable, consistent with his clinical sobriety. I suspect he vomited up all the Red Bull vodkas. 2144: Patient has completed his fluid bolus. My sepsis focused reassessment demonstrates improved vital signs with a heart rate of 110 clinical improvement with the patient reporting improvement of his symptoms. 2153: Chemistry largely unremarkable. K is 3.1 and 40 mEq KCL ordered. 2335: Patient symptoms have continued to improve. His vital signs are normal. Chest x-ray CT scan urinalysis all so far normal. Lactate improved with IV fluid. He is getting potassium repletion as mentioned above. He has had no further signs that would suggest ongoing GI bleeding. Given all of this improvement we will have the patient remain in the ER to complete his potassium repletion we will repeat his lactic acid one more time if things continue to improve and normalized and he remains asymptomatic we can trial p.o. and if he continues to do well he can likely go home in a few hours. He has no focus of infection at this time leukocytosis could have been reactive as could the lactic acid. 0250: Patient feels much better. His potassium is completed. He has had no further symptoms during his stay in the emergency department he has been ambulatory with a steady gait without abnormal vital signs. Given all these factors I see no indication for admission at this point. He does not have signs that would suggest ongoing sepsis. Patient will follow-up with his primary care doctor the [facility].
[2020-02-10] MEDS ORDERED: metroNIDAZOLE/Normal Saline 500 MG in Premix Bag 1 BAG IV ONE (21:15)
[2020-02-10] MEDS ORDERED: Ciprofloxacin in D5W 400 MG in Premix Bag 1 BAG IV SCH ×2 (21:15)
--- NOTE | 2020-02-10 21:33 | CR ---
Chest: Portable view of the chest was obtained. Comparison: No prior chest imaging is available. Heart size and mediastinum are normal. Lungs are clear with no acute parenchymal change. Slight scoliosis is noted within the spine. Nothing acute is appreciated within the visualized osseous structures. Impression: 1. Slight scoliosis. 2. Nothing acute is appreciated on portable chest x-ray. Diagnostic code #2 Study was dictated in MDT
[2020-02-10 21:39] LABS: BLOOD UREA NITROGEN,BUN 9 mg/dL (7.0-18.0); CARBON DIOXIDE,CO2 24.1 mmol/L (21.0-32.0); CHLORIDE,CL 101 mmol/L (98-107); GLUCOSE RANDOM 216 mg/dL (74-106); LIPASE 79 U/L (73-393); POTASSIUM,K 3.1 mmol/L (3.5-5.1); SODIUM,NA 139 mmol/L (136-148)
[2020-02-10] MEDS ORDERED: Potassium Chloride Riders 40 MEQ in Premix Bag 1 BAG IV ONE (21:53)
[2020-02-10] MEDS ORDERED: Iopamidol 755 MG/ML 500 ML Multipack Bottle IVPUSH STA (22:26)
[2020-02-10] MEDS ORDERED: Lactated Ringers 1,000 ML IV SCH (22:30)
--- NOTE | 2020-02-10 22:48 | CT ---
CT abdomen and pelvis Technique: Multiple axial sections were obtained from above the dome of the diaphragm inferiorly through the pubic symphysis. Intravenous contrast was utilized. No oral contrast has been given. Comparison: Prior CT abdomen and pelvis exam of 10/30/18. Findings: Visualized lung bases show nothing acute. Liver contains no focal abnormality. Spleen appears within normal limits. Adrenal glands show no nodule. Kidneys show symmetric contrast enhancement without hydronephrosis or mass. Gallbladder contains no calcified gallstones. Pancreas shows no abnormality. Aorta shows no aneurysm. No retroperitoneal adenopathy or mesenteric abnormalities are seen. No pelvic mass or adenopathy is seen. No free fluid or inflammatory change is appreciated. Appendix is seen which is normal in size. Bone window settings were reviewed which shows no acute osseous finding. Impression: 1. Nothing acute is appreciated on CT study of of the abdomen and pelvis. Diagnostic code #1 Study was dictated in MDT
== END 2020-02-11 03:12 | disposition home or self-care (01) ==
LOC: MW.ED 21:02
DX: R11.10 Vomiting, unspecified (principal); R00.2 Palpitations; R42 Dizziness and giddiness; Z88.0 Allergy status to penicillin; Z20.828 Contact with and (suspected) exposure to other viral communicable diseases
CPT/HCPCS: 36415; 71045; 74177; 80053; 80307; 81001; 83605; 83690; 83735; 84484; 85025; 85610; 85730; 87040; 87635; 93005; 96365; 96366; 96367; 96368; 96375; 99285; J0744; J2405; J3480; J3490; J7120; Q9967; 99291; U0002

== ENCOUNTER 2020-03-05 10:49 | Emergency (ER) | payer BC, OTHER ==
--- NOTE | 2020-03-05 11:15 | EDM.PDOC ---
ED [facility] GENERAL MEDICAL PROBLEM - General Chief Complaint: General Stated Complaint: TROUBLE REMEMBERING THINGS Time Seen by Provider: 03/05/20 10:55 - History of Present Illness INITIAL COMMENTS - FREE TEXT/NARRATIVE: HISTORY AND PHYSICAL: History of present illness: This 35-year-old male presents emergency department with confusion. He states that after he drank a red bull at work that was left in the company of a friend who is a regular recreational drug user he began having difficulty with thinking and remembering things. This is unusual for him. He also reports briefly after this happening he had a fever, headache, and neck stiffness and now he only has neck stiffness. No recent travel other than about 4 weeks ago he went to a [facility] and return without incident. He has not had any known exposure to COVID-19. No nausea or vomiting. No urinary symptoms. No recreational drug use. Review of systems: A 10-point review of systems, other than pertinent positives and negatives as stated per HPI, is otherwise negative. Past medical history: As per history of present illness and as reviewed below otherwise noncontributory. Surgical history: As per history of present illness and as reviewed below otherwise noncontributory. Social history: No reported history of drug or alcohol abuse. Family history: As per history of present illness and as reviewed below otherwise noncontribut ory. Physical exam: VITAL SIGNS: Reviewed. GENERAL: Nontoxic appearing. HEAD: No signs of head trauma. EYES: Pupils are equal. Extraocular motions intact. EARS: Hearing grossly intact. MOUTH: Oropharynx is normal. NECK: No adenopathy, no JVD. CHEST: Chest with clear breath sounds bilaterally. No wheezes, rales, or rhonchi. CARDIAC: Regular rate and rhythm. Normal S1 and S2, without murmurs, gallops, or rubs. VASCULAR: Peripheral pulses normal and equal in all extremities. ABDOMEN: Soft, without detectable tenderness. No sign of distention. No rebound or guarding, and no masses palpated. MUSCULOSKELETAL: Good range of motion of all major joints. Extremities without clubbing, cyanosis or edema. NEUROLOGIC EXAM: Alert and oriented x 3. No focal sensory or motor deficits. Speech normal. Follows commands. Cranial nerves II through XII are intact. Complains of pain with range of motion of neck PSYCHIATRIC: Mood normal. SKIN: No rash or lesions. Initial Differential Diagnosis & Plan: Meningitis, encephalopathy, viral infection, drug use, stroke, mass lesion Labs, CT, likely will require lumbar puncture. Definitive disposition and diagnosis as appropriate pending reevaluation and review of above. - Related Data Allergies Allergy/AdvReac Type Severity Reaction Status Date / Time Penicillins Allergy Anaphylactic Verified 03/05/20 10:57 Shock Home Meds: Home Meds . [No Known Home Meds] 10/30/18 [History] Past Medical History - Past Health History Medical/Surgical History: Denies Medical/Surgical History - Infectious Disease History Infectious Disease History: Reports: None Social & Family History - Family History Family Medical History: Noncontributory - Caffeine Use Caffeine Use: Reports: Coffee - Recreational Drug Use Recreational Drug Use: No ED ROS GENERAL - Review of Systems Review Of Systems: See Below (noted) ED EXAM, GENERAL - Physical Exam Exam: See Below (noted) ED GENERAL MEDICAL PROCEDURES - Additional/Other Procedure(s) Other (Free Text) Procedure(s): PROCEDURE NOTE: LUMBAR PUNCTURE INDICATION: Diagnosis and Treatment of possible angitis, encephalitis. INFORMED CONSENT: The risks of the procedure including bleeding, headache, and infection were explained to the patient. The patient verbalized their understanding of the procedure, the risks, benefits and alternatives and wished to proceed. PROCEDURE: The patient was placed in a sitting position and prepped and draped in a sterile fashion. Local anesthetic was introduced at the L3-L4 interspace. A 22 guage pencil-point spinal needle was then introduced slowly over the interspinous space and directed toward the umbilicus. The stylet was removed when the dural space was entered and CSF was collected and sent to the lab for appropriate studies. EBL: <5 mL COMPLICATIONS: None. #1 Interpretation EKG Interpretation Comments: 12 lead EKG interpretation Obtained: March 05, 2020 at 11:03 AM Rhythm: Sinus Rate: 63 [place]: Normal Intervals: Normal ST/T Segments: No acute ischemic changes Interpretation: Sinus Rhythm Course - Vital Signs Last Recorded V/S: Last Vital Signs Temp 99 F 03/05/20 16:45 Pulse 65 03/05/20 16:45 Resp 14 03/05/20 16:45 BP 124/67 03/05/20 16:45 Pulse Ox 97 03/05/20 16:45 - Orders/Labs/Meds Orders: Active Orders 24 hr Category Date Time Status CULTURE CSF + SMEAR [RM] Stat Lab 03/05/20 12:55 Results HSV 1/2 PCR [REF] Stat Lab 03/05/20 15:52 Ordered MISC TEST Routine Lab 03/05/20 12:55 Received VDRL, CSF Stat Lab 03/05/20 15:50 Ordered [place] VIRUS ANTIBODY, CSF Stat Lab 03/05/20 15:50 Ordered ED Lumbar Puncture Reflex [OM.PC] Click to Edit Oth 03/05/20 15:59 Ordered Labs: Laboratory Tests 03/05/20 03/05/20 03/05/20 Range/Units 11:07 12:13 12:13 WBC 7.31 (4.0-11.0) K/uL RBC 4.89 (4.50-5.90) M/uL Hgb 14.8 (13.0-17.0) g/dL Hct 45.0 (38.0-50.0) % MCV 92.0 (80.0-98.0) fL MCH 30.3 (27.0-32.0) pg MCHC 32.9 (31.0-37.0) g/dL RDW Std Deviation 44.9 (28.0-62.0) fl RDW Coeff of Shari 14 (11.0-15.0) % Plt Count 357 (150-400) K/uL MPV 9.10 (7.40-12.00) fL Neut % (Auto) 74.1 (48.0-80.0) % Lymph % (Auto) 20.0 (16.0-40.0) % [place] % (Auto) 5.5 (0.0-15.0) % Eos % (Auto) 0.3 (0.0-7.0) % Baso % (Auto) 0.1 (0.0-1.5) % Neut # (Auto) 5.4 (1.4-5.7) K/uL Lymph # (Auto) 1.5 (0.6-2.4) K/uL Dickinson # (Auto) 0.4 (0.0-0.8) K/uL Eos # (Auto) 0.0 (0.0-0.7) K/uL Baso # (Auto) 0.0 (0.0-0.1) K/uL Nucleated RBC % 0.0 /100WBC Nucleated RBCs # 0 K/uL Sodium 138 (136-148) mmol/L Potassium 4.2 (3.5-5.1) mmol/L Chloride 100 (98-107) mmol/L Carbon Dioxide 21.6 (21.0-32.0) mmol/L BUN 12 (7.0-18.0) mg/dL Creatinine 1.2 (0.8-1.3) mg/dL Est Cr Clr Drug Dosing 76.56 mL/min Estimated GFR (MDRD) > 60.0 ml/min Glucose 93 (74-106) mg/dL POC Glucose 87 (60-110) mg/dL Calcium 9.3 (8.5-10.1) mg/dL Total Bilirubin 0.8 (0.2-1.0) mg/dL AST 60 H (15-37) IU/L ALT 62 (14-63) IU/L Alkaline Phosphatase 70 (46-116) U/L Total Protein 7.7 (6.4-8.2) g/dL Albumin 4.4 (3.4-5.0) g/dL Globulin 3.3 (2.6-4.0) g/dL Albumin/Globulin Ratio 1.3 (0.9-1.6) Urine Color Urine Appearance Urine pH (5.0-8.0) Ur Specific [place] (1.001-1.035) Urine Protein (NEGATIVE) mg/dL Urine Glucose (UA) (NEGATIVE) mg/dL Urine Ketones (NEGATIVE) mg/dL Urine Occult Blood (NEGATIVE) Urine Nitrite (NEGATIVE) Urine Bilirubin (NEGATIVE) Urine Urobilinogen (<2.0) EU/dL Ur Leukocyte Esterase (NEGATIVE) Urine RBC (0-2/HPF) Urine WBC (0-5/HPF) Ur Epithelial Cells (NONE-FEW) Urine Bacteria (NEGATIVE) Urine Mucus (NONE-MOD) CSF Appearance CSF Color CSF WBC (0-5) /uL CSF RBC (0-0) /uL CSF Mononuclear Cells % CSF Glucose (40-70) mg/dL CSF Total Protein (15-45) mg/dL Urine Opiates Screen (NEGATIVE) Ur Oxycodone Screen (NEGATIVE) Urine Methadone Screen (NEGATIVE) Ur Barbiturates Screen (NEGATIVE) Ur Phencyclidine Scrn (NEGATIVE) Ur Amphetamine Screen (NEGATIVE) U Methamphetamines Scrn (NEGATIVE) U Benzodiazepines Scrn (NEGATIVE) U Cocaine Metab Screen (NEGATIVE) U Marijuana (THC) Screen (NEGATIVE) Ethyl Alcohol <3 mg/dL 03/05/20 03/05/20 03/05/20 Range/Units 12:55 12:55 12:55 WBC (4.0-11.0) K/uL RBC (4.50-5.90) M/uL Hgb (13.0-17.0) g/dL Hct (38.0-50.0) % MCV (80.0-98.0) fL MCH (27.0-32.0) pg MCHC (31.0-37.0) g/dL RDW Std Deviation (28.0-62.0) fl RDW Coeff of Shari (11.0-15.0) % Plt Count (150-400) K/uL MPV (7.40-12.00) fL Neut % (Auto) (48.0-80.0) % Lymph % (Auto) (16.0-40.0) % Dickinson % (Auto) (0.0-15.0) % Eos % (Auto) (0.0-7.0) % Baso % (Auto) (0.0-1.5) % Neut # (Auto) (1.4-5.7) K/uL Lymph # (Auto) (0.6-2.4) K/uL [place] # (Auto) (0.0-0.8) K/uL Eos # (Auto) (0.0-0.7) K/uL Baso # (Auto) (0.0-0.1) K/uL Nucleated RBC % /100WBC Nucleated RBCs # K/uL Sodium (136-148) mmol/L Potassium (3.5-5.1) mmol/L Chloride (98-107) mmol/L Carbon Dioxide (21.0-32.0) mmol/L BUN (7.0-18.0) mg/dL Creatinine (0.8-1.3) mg/dL Est Cr Clr Drug Dosing mL/min Estimated GFR (MDRD) ml/min Glucose (74-106) mg/dL POC Glucose (60-110) mg/dL Calcium (8.5-10.1) mg/dL Total Bilirubin (0.2-1.0) mg/dL AST (15-37) IU/L ALT (14-63) IU/L Alkaline Phosphatase (46-116) U/L Total Protein (6.4-8.2) g/dL Albumin (3.4-5.0) g/dL Globulin (2.6-4.0) g/dL Albumin/Globulin Ratio (0.9-1.6) Urine Color Urine Appearance Urine pH (5.0-8.0) Ur Specific [place] (1.001-1.035) Urine Protein (NEGATIVE) mg/dL Urine Glucose (UA) (NEGATIVE) mg/dL Urine Ketones (NEGATIVE) mg/dL Urine Occult Blood (NEGATIVE) Urine Nitrite (NEGATIVE) Urine Bilirubin (NEGATIVE) Urine Urobilinogen (<2.0) EU/dL Ur Leukocyte Esterase (NEGATIVE) Urine RBC (0-2/HPF) Urine WBC (0-5/HPF) Ur Epithelial Cells (NONE-FEW) Urine Bacteria (NEGATIVE) Urine Mucus (NONE-MOD) CSF Appearance CLEAR CLEAR CSF Color COLORLESS COLORLESS CSF WBC 2 1 (0-5) /uL CSF RBC 0 0 (0-0) /uL CSF Mononuclear Cells 100.0 100.0 % CSF Glucose 59.0 (40-70) mg/dL CSF Total Protein 29 (15-45) mg/dL Urine Opiates Screen (NEGATIVE) Ur Oxycodone Screen (NEGATIVE) Urine Methadone Screen (NEGATIVE) Ur Barbiturates Screen (NEGATIVE) Ur Phencyclidine Scrn (NEGATIVE) Ur Amphetamine Screen (NEGATIVE) U Methamphetamines Scrn (NEGATIVE) U Benzodiazepines Scrn (NEGATIVE) U Cocaine Metab Screen (NEGATIVE) U Marijuana (THC) Screen (NEGATIVE) Ethyl Alcohol mg/dL 03/05/20 03/05/20 Range/Units 15:17 15:17 WBC (4.0-11.0) K/uL RBC (4.50-5.90) M/uL Hgb (13.0-17.0) g/dL Hct (38.0-50.0) % MCV (80.0-98.0) fL MCH (27.0-32.0) pg MCHC (31.0-37.0) g/dL RDW Std Deviation (28.0-62.0) fl RDW Coeff of Shari (11.0-15.0) % Plt Count (150-400) K/uL MPV (7.40-12.00) fL Neut % (Auto) (48.0-80.0) % Lymph % (Auto) (16.0-40.0) % [place] % (Auto) (0.0-15.0) % Eos % (Auto) (0.0-7.0) % Baso % (Auto) (0.0-1.5) % Neut # (Auto) (1.4-5.7) K/uL Lymph # (Auto) (0.6-2.4) K/uL [place] # (Auto) (0.0-0.8) K/uL Eos # (Auto) (0.0-0.7) K/uL Baso # (Auto) (0.0-0.1) K/uL Nucleated RBC % /100WBC Nucleated RBCs # K/uL Sodium (136-148) mmol/L Potassium (3.5-5.1) mmol/L Chloride (98-107) mmol/L Carbon Dioxide (21.0-32.0) mmol/L BUN (7.0-18.0) mg/dL Creatinine (0.8-1.3) mg/dL Est Cr Clr Drug Dosing mL/min Estimated GFR (MDRD) ml/min Glucose (74-106) mg/dL POC Glucose (60-110) mg/dL Calcium (8.5-10.1) mg/dL Total Bilirubin (0.2-1.0) mg/dL AST (15-37) IU/L ALT (14-63) IU/L Alkaline Phosphatase (46-116) U/L Total Protein (6.4-8.2) g/dL Albumin (3.4-5.0) g/dL Globulin (2.6-4.0) g/dL Albumin/Globulin Ratio (0.9-1.6) Urine Color YELLOW Urine Appearance CLEAR Urine pH 5.5 (5.0-8.0) Ur Specific [place] >= 1.030 (1.001-1.035) Urine Protein TRACE H (NEGATIVE) mg/dL Urine Glucose (UA) NEGATIVE (NEGATIVE) mg/dL Urine Ketones >=80 (NEGATIVE) mg/dL Urine Occult Blood NEGATIVE (NEGATIVE) Urine Nitrite NEGATIVE (NEGATIVE) Urine Bilirubin NEGATIVE (NEGATIVE) Urine Urobilinogen 0.2 (<2.0) EU/dL Ur Leukocyte Esterase NEGATIVE (NEGATIVE) Urine RBC 0-2 (0-2/HPF) Urine WBC 0-2 (0-5/HPF) Ur Epithelial Cells OCCASIONAL (NONE-FEW) Urine Bacteria FEW (NEGATIVE) Urine Mucus LIGHT (NONE-MOD) CSF Appearance CSF Color CSF WBC (0-5) /uL CSF RBC (0-0) /uL CSF Mononuclear Cells % CSF Glucose (40-70) mg/dL CSF Total Protein (15-45) mg/dL Urine Opiates Screen NEGATIVE (NEGATIVE) Ur Oxycodone Screen NEGATIVE (NEGATIVE) Urine Methadone Screen NEGATIVE (NEGATIVE) Ur Barbiturates Screen NEGATIVE (NEGATIVE) Ur Phencyclidine Scrn NEGATIVE (NEGATIVE) Ur Amphetamine Screen NEGATIVE (NEGATIVE) U Methamphetamines Scrn NEGATIVE (NEGATIVE) U Benzodiazepines Scrn NEGATIVE (NEGATIVE) U Cocaine Metab Screen POSITIVE (NEGATIVE) U Marijuana (THC) Screen NEGATIVE (NEGATIVE) Ethyl Alcohol mg/dL Meds: Medications Discontinued Medications Generic Name Dose Route Start Last Admin Trade Name Freq PRN Reason Stop Dose Admin Sodium Chloride 1,000 mls @ 999 mls/hr 03/05/20 12:50 03/05/20 12:50 Normal Saline IV 03/05/20 13:50 999 mls/hr .Bolus ONE Administration Midazolam HCl 2 mg 03/05/20 12:45 03/05/20 12:50 Versed 1 Mg/Ml IVPUSH 03/05/20 12:46 2 mg ONETIME ONE Administration - Re-Assessments/Exams Free Text/Narrative Re-Assessment/Exam: 03/05/20 16:02 Patient tolerated lumbar puncture well. Initial protein and glucose are normal. Gram stain shows no evidence of abnormalities. If the CSF does not show pleocytosis or other abnormalities the rest of his labs will be pending. He is cocaine metabolite positive. This goes along with his story of getting a spiked red bull. This could cause his amnesia. My diagnostic impression: 1. Amnesia 2. Positive for cocaine metabolites 3. CSF cultures pending Departure - Departure Time of Disposition: 16:03 Disposition: Home, Self-Care 01 Condition: Good Clinical Impression: Cocaine use - Discharge Information *PRESCRIPTION DRUG MONITORING PROGRAM REVIEWED*: Not Applicable *COPY OF PRESCRIPTION DRUG MONITORING REPORT IN PATIENT KUMAR: Not Applicable Instructions: Illegal Drug Use Information, Adult Referrals: PCP,None [Primary Care Provider] - Forms: ED Department Discharge Additional Instructions: The following information is given to patients seen in the emergency department who are being discharged to home. This information is to outline your options for follow-up care. We provide all patients seen in our emergency department with a follow-up referral. The need for follow-up, as well as the timing and circumstances, are variable depending upon the specifics of your emergency department visit. If you don't have a primary care physician on staff, we will provide you with a referral. We always advise you to contact your personal physician following an emergency department visit to inform them of the circumstance of the visit and for follow-up with them and/or the need for any referrals to a consulting specialist. The emergency department will also refer you to a specialist when appropriate. This referral assures that you have the opportunity for follow-up care with a specialist. All of these measure are taken in an effort to provide you with optimal care, which includes your follow-up. Thank you for coming to the [facility] urgency department for your care today. It was Dr. Bhandari's pleasure to take care of you. [facility] [address] [place] [address] [place] [address] Your urine test came back positive for cocaine metabolites. This could mean that you were exposed to cocaine or cocaine like substance as you suspected. Your spinal tap today was essentially normal. Please avoid taking cocaine in the future and do not leave your drinks with suspicious people. Return to the emergency department if you have other questions. Under all circumstances we always encourage you to contact your private physician who remains a resource for coordinating your care. When calling for follow-up care, please make the office aware that this follow-up is from your recent emergency room visit. If for any reason you are refused follow-up, please contact the [facility] Emergency Department at and asked to speak to the emergency department charge nurse. Sepsis Event Note (ED) - Evaluation Sepsis Screening Result: No Definite Risk - Focused Exam Vital Signs: Vital Signs Temp Pulse Resp BP Pulse Ox 03/05/20 16:45 99 F 65 14 124/67 97 03/05/20 16:16 70 122/67 98 03/05/20 14:50 69 98 03/05/20 13:45 103 H 99 03/05/20 12:45 85 116/80 98 03/05/20 11:55 90 99 03/05/20 10:57 98.3 F 67 20 134/77 96 - My Orders Last 24 Hours: My Active Orders 03/05/20 12:55 CULTURE CSF + SMEAR [RM] Stat MISC TEST Routine 03/05/20 15:50 VDRL, CSF Stat [place] VIRUS ANTIBODY, CSF Stat 03/05/20 15:52 HSV 1/2 PCR [REF] Stat 03/05/20 15:59 ED Lumbar Puncture Reflex [OM.PC] Click to Edit - Assessment/Plan Last 24 Hours: My Active Orders 03/05/20 12:55 CULTURE CSF + SMEAR [RM] Stat MISC TEST Routine 03/05/20 15:50 VDRL, CSF Stat [place] VIRUS ANTIBODY, CSF Stat 03/05/20 15:52 HSV 1/2 PCR [REF] Stat 03/05/20 15:59 ED Lumbar Puncture Reflex [OM.PC] Click to Edit
[2020-03-05 12:38] LABS: BLOOD UREA NITROGEN,BUN 12 mg/dL (7.0-18.0); CARBON DIOXIDE,CO2 21.6 mmol/L (21.0-32.0); CHLORIDE,CL 100 mmol/L (98-107); GLUCOSE RANDOM 93 mg/dL (74-106); POTASSIUM,K 4.2 mmol/L (3.5-5.1); SODIUM,NA 138 mmol/L (136-148)
[2020-03-05] MEDS ORDERED: Midazolam 1 MG/ML 2 ML SDV IVPUSH ONE (12:45)
[2020-03-05] MEDS ORDERED: Sodium Chloride 0.9% 1,000 ML IV ONE (12:50)
--- NOTE | 2020-03-05 13:12 | CT ---
INDICATION: Patient with altered mental status. Feels intoxicated. TECHNIQUE: CT head without i.v. contrast. COMPARISON: None FINDINGS: CSF spaces: Within normal limits for age. Brain parenchyma: The brain parenchyma is normal in appearance with preservation of the collazo-white differentiation. No sign of mass, hemorrhage, or midline shift seen. Skull base and calvarium: The visualized paranasal sinuses are well aerated. The mastoid air cells are clear. The visualized orbits are grossly unremarkable. No skull fractures are seen. IMPRESSION: 1. Negative head CT. Please note that all CT scans at this facility use dose modulation, iterative reconstruction, and/or weight-based dosing when appropriate to reduce radiation dose to as low as reasonably achievable. Dictated by Joe Dalal MD @ Mar 05 2020 1:06PM Signed by Dr. Joe Dalal @ Mar 05 2020 1:11PM
--- NOTE | 2020-03-05 13:15 | CR ---
INDICATION: Atypical chest pain. TECHNIQUE: Chest radiograph 1 view COMPARISON: 02/10/2020 FINDINGS: Cardiovascular and mediastinum: The heart silhouette is normal in size and morphology. The mediastinum is normal in appearance. Lungs and pleural spaces: Both lungs are unremarkable in appearance. No sign of pleural effusion seen. No pneumothorax is identified. Bones and soft tissues: No significant findings. IMPRESSION: 1. No acute cardiopulmonary disease is seen. Dictated by Joe Dalal MD @ Mar 05 2020 1:11PM Signed by Dr. Joe Dalal @ Mar 05 2020 1:13PM
== END 2020-03-05 16:45 | disposition home or self-care (01) ==
LOC: MW.ED 10:49
DX: F14.90 Cocaine use, unspecified, uncomplicated (principal); Z88.0 Allergy status to penicillin
CPT/HCPCS: 36415; 62270; 70450; 71045; 80053; 80305; 80307; 81001; 82945; 82962; 84157; 85025; 86592; 86788; 86789; 87070; 87205; 87529; 89050; 93005; 99285; J2250; J7030; 87327; 93010

== ENCOUNTER 2020-07-23 04:33 | Emergency (ER) | payer BC ==
[2020-07-23] MEDS ORDERED: LORazepam 2 MG/ML SDV IVPUSH ONE (04:58)
[2020-07-23] MEDS ORDERED: Ibuprofen 600 MG Tab PO ONE (04:58)
[2020-07-23 05:15] LABS: BLOOD UREA NITROGEN,BUN 9 mg/dL (7.0-18.0); CARBON DIOXIDE,CO2 25.7 mmol/L (21.0-32.0); CHLORIDE,CL 99 mmol/L (98-107); GLUCOSE RANDOM 123 mg/dL (74-106); POTASSIUM,K 3.4 mmol/L (3.5-5.1); SODIUM,NA 136 mmol/L (136-148)
--- NOTE | 2020-07-23 05:43 | CR ---
INDICATION: Chest pain and palpitations. Used marijuana, cocaine, and beer. COMPARISON: Chest single view from 03/05/2020 FINDINGS: An erect single view of the chest was obtained at 0518 hours. The lungs remain clear. No focal or diffuse infiltrates are present. The heart remains normal in size. The mediastinum is normal in appearance. The osseous structures are normal in appearance for the patient`s age. IMPRESSION: Normal chest single view. Dictated by Radames Puentes MD @ Jul 23 2020 5:39AM Signed by Dr. Radames Puentes @ Jul 23 2020 5:41AM
--- NOTE | 2020-07-23 07:16 | EDM.PDOC ---
<Gareth White - Last Filed: 07/23/20 07:16> ED HPI GENERAL MEDICAL PROBLEM - General Chief Complaint: Drug or Alcohol Abuse Stated Complaint: HEART PROBLEMS Time Seen by Provider: 07/23/20 04:58 - History of Present Illness INITIAL COMMENTS - FREE TEXT/NARRATIVE: CHIEF COMPLAINT(S): Palpitations HISTORY OF PRESENT ILLNESS: HPI was obtained with compliance intern use as patient is Hebrew-speaking This is a 35-year-old man with a past medical history of alcohol use disorder, cocaine use disorder and marijuana use disorder who comes to the emergency department with a chief complaint of palpitations. Patient states that he has had approximately 5-6 coronas this evening and approximately 30 minutes prior to arrival he started to experience palpitations on the left side of his chest associated with some shortness of breath. He states that he initially had some chest pain but that has since resolved. He denies any nausea or vomiting. He states that the pain is now gone but earlier described it as a dull achy 5-6 out of 10. He denies any radiation of this pain he states that there is no aggravating factors or relieving factors. He states that this all started after he smoked weed laced with cocaine. He denies any history of CAD or CHF. He denies any recent travel, recent surgery, prior history of DVT or PE. REVIEW OF SYSTEMS: Constitutional: Denies fever, chills. Eyes: Denies eye pain Ears, Nose, Mouth, & Throat: Denies earache Cardiovascular: Positive for chest pain and palpitations Respiratory: Positive for shortness of breath Gastrointestinal: Denies Nausea, vomiting, diarrhea, hematochezia. Genitourinary: Denies hematuria Skin:Denies a rash MSK: Denies joint pain Neurological: Denies blurred vision, numbness, tingling, weakness Psychiatric: Denies depression PAST MEDICAL HISTORY: As per history of present illness and as reviewed below otherwise noncontributory. SURGICAL HISTORY: As per history of present illness and as reviewed below otherwise noncontributory. SOCIAL HISTORY: As per history of present illness and as reviewed below otherwise noncontributory. FAMILY HISTORY: As per history of present illness and as reviewed below otherwise noncontributory. EXAMINATION OF ORGAN SYSTEMS/BODY AREAS: Constitutional: Blood pressure is 119/81, heart rate 109, respiratory rate 20 with an oxygen saturation 9 9% on room air. Temperature 36 point General: Anxious appearing man who otherwise is in no acute distress Psychiatric: Appropriate mood and affect. Eyes: No scleral icterus or conjunctival erythema ENMT: Moist mucous membranes. No pharyngeal erythema Cardiovascular: Tachycardic but regular no gallops, murmurs, or rubs. Bilateral upper extremity pulses symmetric and intact. No peripheral edema. No JVD. Respiratory: Lungs clear to auscultation bilaterally. No wheezes, rales, or rhonchi. Gastrointestinal: Soft, non-tender, non-distended. Normoactive bowel sounds Genitourinary: No suprapubic tenderness Musculoskeletal: Normal range of motion. Skin: No lesions or abrasions. Neurological: Alert, GCS 15 MEDICAL DECISION MAKING AND COURSE IN THE ED WITH INTERPRETATION/REVIEW OF DIAGNOSTIC STUDIES: This is a 35-year-old man with polysubstance abuse who comes to the emergency department with acute palpitations and resolved chest pain who appears mildly anxious. Given the patient's cocaine use the patient will undergo a cardiac work-up. Given that it was 30 minutes prior to arrival he will need to troponins. We will provide the patient with Motrin and Ativan. EKG was obtained which did not reveal any acute signs of ischemia. Time: 0423 Twelve-lead EKG interpreted by myself. Normal sinus rhythm at a rate of 104beats per minute. Normal axis. AZ interval is 158ms. QRS duration is 78ms. ST segments are mildly elevated in leads II, III, and aVF however less than 1 box without any reciprocal changes. No T wave inversions no Q waves present. Hypertrophy not noted. No changes demonstrated from prior EKG dated 03/05/2020. Interpretation: Sinus tachycardia Time: 0607 Twelve-lead EKG interpreted by myself. Normal sinus rhythm at a rate of 92beats per minute. Normal axis. AZ interval is 97ms. QRS duration is 80ms. ST segments are mildly elevated in leads II, 3, aVF which is less than the walking box without any reciprocal changes. No T wave inversions no Q waves present. Hypertrophy not noted. No changes demonstrated from prior EKG dated today. Interpretation: Sinus rhythm Laboratory: CBC reveals a mild leukocytosis of 12.5 with normal indices otherwise unremarkable. BMP reveals hypokalemia at 3.4 likely secondary to increased stress response, hyperglycemia at 123 otherwise unremarkable. Magnesium is 2.1. Troponin is negative DISPOSITION: Patient was signed out to [facility] day team physician pending repeat troponin and final disposition CONDITION: Fair PROCEDURES: None FINAL IMPRESSION(S)/DIAGNOSES: 1. Acute palpitations likely secondary to cocaine use 2. Acute chest pain likely secondary to cocaine use Gareth White M.D. - Related Data Allergies Allergy/AdvReac Type Severity Reaction Status Date / Time Penicillins Allergy Anaphylactic Verified 07/23/20 04:41 Shock Home Meds: Home Meds . [No Known Home Meds] 10/30/18 [History] Past Medical History - Past Health History Medical/Surgical History: Denies Medical/Surgical History - Infectious Disease History Infectious Disease History: Reports: None Social & Family History - Family History Family Medical History: No Pertinent Family History - Tobacco Use Tobacco Use Status *Q: Current Every Day Tobacco User Years of Tobacco use: 5 Packs/Tins Daily: 1 - Caffeine Use Caffeine Use: Reports: Coffee - Recreational Drug Use Recreational Drug Use: Yes Recreational Drug Type: Reports: Cocaine, Marijuana/Hashish ED ROS GENERAL - Review of Systems Review Of Systems: See Below ED EXAM, GENERAL - Physical Exam Exam: See Below Departure - Departure Disposition: Home, Self-Care 01 Clinical Impression: Drug abuse, Cocaine use, Palpitations Instructions: Palpitations, Finding Treatment for Addiction, Chemical Depende ncy Referrals: PCP,None [Primary Care Provider] - Forms: ED Department Discharge Additional Instructions: The need for follow-up, as well as the timing and circumstances, are variable depending upon the specifics of your emergency department visit. If you don't have a primary care physician on staff, we will provide you with a referral. We always advise you to contact your personal physician following an emergency department visit to inform them of the circumstance of the visit and for follow-up with them and/or the need for any referrals to a consulting specialist. The emergency department will also refer you to a specialist when appropriate. This referral assures that you have the opportunity for follow-up care with a specialist. All of these measure are taken in an effort to provide you with optimal care, which includes your follow-up. Under all circumstances we always encourage you to contact your private physician who remains a resource for coordinating your care. When calling for follow-up care, please make the office aware that this follow-up is from your recent emergency room visit. If for any reason you are refused follow-up, please contact the [facility] Emergency Department at and asked to speak to the emergency department charge nurse. If you do not have a primary care doctor, please follow up with the clinics below within 3-[address] [facility] [address], [place] [address] [facility] [address] [place] [id number] Sepsis Event Note (ED) - Evaluation Sepsis Screening Result: No Definite Risk <Jd Pedroza - Last Filed: 07/23/20 08:50> ED HPI GENERAL MEDICAL PROBLEM - General Source of Information: Reports: Patient Course - Vital Signs Last Recorded V/S: Last Vital Signs Temp 97.9 F 07/23/20 04:41 Pulse 90 07/23/20 07:10 Resp 17 07/23/20 07:10 BP 105/70 07/23/20 07:10 Pulse Ox 94 L 07/23/20 07:10 - Orders/Labs/Meds Orders: Active Orders 24 hr Category Date Time Status EKG 12 Lead [EKG Documentation Completion] [RC] STAT Care 07/23/20 06:06 Active EKG Documentation Completion [RC] STAT Care 07/23/20 04:59 Active Labs: Laboratory Tests 07/23/20 07/23/20 07/23/20 Range/Units 04:46 04:46 07:58 WBC 12.50 H (4.0-11.0) K/uL RBC 5.02 (4.50-5.90) M/uL Hgb 15.6 (13.0-17.0) g/dL Hct 44.4 (38.0-50.0) % MCV 88.4 (80.0-98.0) fL MCH 31.1 (27.0-32.0) pg MCHC 35.1 (31.0-37.0) g/dL RDW Std Deviation 41.1 (28.0-62.0) fl RDW Coeff of Shari 13 (11.0-15.0) % Plt Count 287 (150-400) K/uL MPV 9.10 (7.40-12.00) fL Neut % (Auto) 65.7 (48.0-80.0) % Lymph % (Auto) 20.2 (16.0-40.0) % [place] % (Auto) 10.7 (0.0-15.0) % Eos % (Auto) 3.2 (0.0-7.0) % Baso % (Auto) 0.2 (0.0-1.5) % Neut # (Auto) 8.2 H (1.4-5.7) K/uL Lymph # (Auto) 2.5 H (0.6-2.4) K/uL [place] # (Auto) 1.3 H (0.0-0.8) K/uL Eos # (Auto) 0.4 (0.0-0.7) K/uL Baso # (Auto) 0.0 (0.0-0.1) K/uL Nucleated RBC % 0.0 /100WBC Nucleated RBCs # 0 K/uL Sodium 136 (136-148) mmol/L Potassium 3.4 L (3.5-5.1) mmol/L Chloride 99 (98-107) mmol/L Carbon Dioxide 25.7 (21.0-32.0) mmol/L BUN 9 (7.0-18.0) mg/dL Creatinine 1.1 (0.8-1.3) mg/dL Est Cr Clr Drug Dosing 90.20 mL/min Estimated GFR (MDRD) > 60.0 ml/min Glucose 123 H (74-106) mg/dL Calcium 9.6 (8.5-10.1) mg/dL Magnesium 2.1 (1.8-2.4) mg/dL Troponin I < 0.050 < 0.050 (0.000-0.056) ng/mL Meds: Medications Discontinued Medications Generic Name Dose Route Start Last Admin Trade Name Freq PRN Reason Stop Dose Admin Ibuprofen 600 mg 07/23/20 04:58 07/23/20 05:14 Motrin PO 07/23/20 04:59 600 mg ONETIME ONE Administration Lorazepam 1 mg 07/23/20 04:58 07/23/20 05:14 Ativan IVPUSH 07/23/20 04:59 1 mg ONETIME ONE Administration - Re-Assessments/Exams Free Text/Narrative Re-Assessment/Exam: 07/23/20 07 This patient was signed out to me from Dr. White at this time. I promptly performed a detailed physical examination, my examination was performed after ED treatments were initiated by the signout provider. Patient has been under the care of the previous provider up until this point. Patient is clinically sober, exhibits a normal gait. He has no complaints of chest pain at this time. 07/23/20 09 After trending his second troponin in the ER, he is currently stable for discharge. I performed a repeat exam and did not appreciate new abnormal findings. Patient exhibits normal vital signs and has a normal gait on road test. I advised the patient to return to the ER for reevaluation if symptoms worsened, including fever, worsening pain, or any other worrisome symptoms. I instructed the patient to follow up with their PCP within 2-3 days. MEDICAL DECISION MAKING: I reviewed the patients past medical records, lab and radiographic findings. I discussed the case with the patient. My differential diagnosis included: cocaine induced angina, ACS, pneumonia, PE, pneumothorax, chest wall pain, pulmonary edema/CHF, aortic dissection, pericarditis. Given the EKG and clinical history, I do not suspect pericarditis. There is no evidence of pneumothorax or infiltrate on CXR. Aortic dissection was considered, however the presenting symptoms were uncharacteristic of aortic dissection. Chest X-ray shows no evidence of mediastinal widening and there are strong, equal and symmetric pulses. Given the current presentation, I do not suspect aortic dissection. The patients history, chest X-ray, and exam do not suggest pulmonary edema/congestive heart failure. Pulmonary embolism was considered but felt unlikely due to the compendium of presenting elements leading to a low pre-test probability followed by a negative PERC rule. I feel that no further diagnostic testing is needed. Acute coronary syndrome was considered but there are negative serial biomarkers, no acute ischemic EKG changes, and the patient has a low HEART score. Based on this, I feel that there is low risk for short-term major adverse cardiac event, stable for outpatient follow up. I suspect her chest pain was likely secondary to transient angina induced from cocaine, repeat troponin did not show any signs of ischemia, there are no EKG findings of obvious ischemia. Departure - Departure Time of Disposition: 09:00 Condition: Good Sepsis Event Note (ED) - Focused Exam Vital Signs: Vital Signs Temp Pulse Resp BP Pulse Ox 07/23/20 07:10 90 17 105/70 94 L 07/23/20 04:41 97.9 F 109 H 20 119/81 99
== END 2020-07-23 08:55 | disposition home or self-care (01) ==
LOC: MW.ED 04:33
DX: R00.2 Palpitations (principal); R07.9 Chest pain, unspecified; Z88.0 Allergy status to penicillin; Z72.0 Tobacco use
CPT/HCPCS: 36415; 71045; 80048; 83735; 84484; 85025; 93005; 96374; 99285; A9270; J2060

== ENCOUNTER 2024-02-14 23:16 | Emergency (ER) | payer SELFPAY | END 2024-02-15 00:27 | LOC: MW.ED 23:16 | DX: Z04.1 Encounter for examination and observation following transport accident (principal); F17.210 Nicotine dependence, cigarettes, uncomplicated; Z88.0 Allergy status to penicillin | CPT/HCPCS: 99283 ==